=== PATIENT | male | born 1975 | race Caucasian/White ===

== ENCOUNTER 2018-08-17 10:26 | Emergency (ER) | payer OTHER ==
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
[2018-08-17 11:50] VITALS: BP 116/75
== END 2018-08-17 11:49 | disposition home or self-care (01) ==
LOC: ED 10:26
DX: S82.892A Other fracture of left lower leg, initial encounter for closed fracture (principal); X50.1XXA Overexertion from prolonged static or awkward postures, initial encounter; Y93.02 Activity, running; Y92.9 Unspecified place or not applicable
CPT/HCPCS: 99282